=== PATIENT | female | born 1945 | race Caucasian/White ===

== ENCOUNTER 2017-07-02 13:22 | Emergency (ER) | payer MEDICARE, OTHER ==
--- NOTE | 2017-07-02 14:02 | CT ---
HEAD CT WITHOUT CONTRAST: Date: 07/02/17 COMPARISON: None. HISTORY: Fall, head trauma, altered mental status. TECHNIQUE: Serial axial CT imaging at 5 mm intervals from vertex through skull base without contrast. FINDINGS: The imaged paranasal sinuses/mastoid air cells are well aerated. There is no displaced calvarial frac ture. No intracranial hemorrhage, midline shift, or mass effect. There is moderate diffuse cerebral v olume loss with associated prominence of the CSF-containing spaces. There is periventricular hypodens ity suggesting a degree of small vessel disease, most prominent anteriorly adjacent to the frontal ho rns of the lateral ventricles. IMPRESSION: Cerebral volume loss and evidence of small vessel disease. No displaced calvarial fracture or intracr anial hemorrhage. POS: MONIQUE
--- NOTE | 2017-07-02 14:04 | CT ---
CT OF THE CERVICAL SPINE WITHOUT CONTRAST: Date: 07/02/17 COMPARISON: None. HISTORY: Altered mental status with neck pain. TECHNIQUE: Multiple contiguous axial images were obtained in a CT of the cervical spine without contrast. Sagitt al and coronal reformats were performed. FINDINGS: There are moderate degenerative changes in the cervical spine. The vertebral bodies demonstrate merlyn l height and alignment without fracture or subluxation. The intervertebral discs are narrowed and mod erate osteophytes are seen. No prevertebral soft tissue swelling is seen. The posterior facets are we ll aligned. Normal alignment of the skull base with the cervical spine is seen. IMPRESSION: Moderate degenerative changes of the cervical spine without acute osseous abnormality. POS: SUBHA
[2017-07-02 14:35] LABS: #Basophils 0.1 thou/uL (0.0-0.2); #Eosinphils 0.1 thou/uL (0.0-0.7); #Lymphocytes 1.6 thou/uL (1.20-3.40); #Monocytes 0.7 thou/uL (0.11-0.59); #Neutrophils 5.1 thou/uL (1.40-6.50); %Basophils 0.9 % (0.0-1.0); %Eosinophils 1.5 % (0.0-10.0); %Lymphocytes 21.5 % (21.0-51.0); %Monocytes 9.5 % (0.0-10.0); %Neutrophils 66.6 % (42.0-75.0); Hemoglobin 12.3 g/dL (12.0-16.0); Mean Corpuscular Hemoglobin 29.7 pg (27.0-31.0); Mean Corpuscular Volume 92.9 fl (81.0-99.0); Platelet Count 227 thou/uL (130-400); RBC Distribution Width 12.6 % (11.5-14.5); Red Blood Cell (RBC) Count 4.12 mill/uL (4.20-5.40); White Blood Cell (WBC) Count 7.6 thou/uL (4.8-10.8)
[2017-07-02 14:57] LABS: ALT (SGPT) 34 U/L (8-55); AST (SGOT) 22 U/L (5-34); Albumin 3.8 g/dL (3.4-4.8); Alkaline Phosphatase 85 U/L (40-150); Anion Gap 11 mmol/L (10-20); BUN (Urea Nitrogen) 13 mg/dL (9.8-20.1); Bilirubin, Total Less than 0.2 mg/dL (0.2-1.2); Calc. Creatinine Clearance 0 mL/min (70-130); Calcium 8.9 mg/dL (7.8-10.44); Carbon Dioxide 28 mmol/L (23-31); Chloride 104 mmol/L (98-107); Estimated GFR-MDRD 67; Globulin 2.8 g/dL (2.4-3.5); Glucose 74 mg/dL (83-110); Potassium 4.3 mmol/L (3.5-5.1); Protein, Total 6.6 g/dL (6.0-8.3); Sodium 139 mmol/L (136-145)
[2017-07-02 15:00] LABS: CKMB 1.1 ng/mL (0-6.6)
[2017-07-02 15:43] LABS: Bilirubin Negative (Negative); Blood, Urine Moderate (Negative); Clarity CLOUDY (Clear); Glucose, Urine (Dipstick) Negative (Negative); Leukocyte Large (Negative); Nitrite Positive (Negative); Protein, Urine (Dipstick) Negative (Neg-Trace); Specific Gravity, Urine 1.018 (1.002-1.036); Urobilinogen 0.2 mg/dL (0.2-1.0); pH, Urine 7.5 (5.0-9.0)
[2017-07-02 15:44] LABS: Bacteria/HPF 4+ HPF (None Seen); Hyaline Casts/LPF 4-6 HYALINE CAST LPF (0-3 Hyaline); Pathc Cast-AUWi Flag 0.54 (0-2.49); Squamous Epithelial 0-3 HPF (0-3)
[2017-07-02] MEDS ORDERED: Adacel (T-DAP) 0.5 ML VIAL ONE (16:27)
[2017-07-02] MEDS ORDERED: Nitrofurantoin Macrocrystal 50 MG CAP PO SCH (16:30)
--- NOTE | 2017-07-17 21:50 | EKG ---
Test Reason : AMS/FALL Blood Pressure : / mmHG Vent. Rate : 077 BPM Atrial Rate : 077 BPM P-R Int : 136 ms QRS Dur : 066 ms QT Int : 372 ms P-R-T Axes : 053 054 063 degrees QTc Int : 420 ms Normal sinus rhythm Abnormal ECG Confirmed by JENNIFER BEARDEN ([id number]), makeup editor JANICE GUILLAUME ([id number] on 07/17/2017 9:49:56 PM Referred By: Confirmed By:JENNIFER BEARDEN
== END 2017-07-02 17:29 | disposition home or self-care (01) ==
LOC: ERS 13:22
DX: S00.93XA Contusion of unspecified part of head, initial encounter (principal); N39.0 Urinary tract infection, site not specified; E78.5 Hyperlipidemia, unspecified; W01.190A Fall on same level from slipping, tripping and stumbling with subsequent striking against furniture, initial encounter; Y92.29 Other specified public building as the place of occurrence of the external cause
CPT/HCPCS: 36415; 70450; 72125; 80053; 81003; 81015; 82553; 83605; 84484; 85025; 87077; 87086; 87186; 90471; 90715; 93005; 94760; 96361; 96374; J0696

== ENCOUNTER 2019-06-04 13:51 | Emergency (ER) | payer MEDICARE, OTHER ==
[2019-06-04 14:36] LABS: #Eosinphils 0.2 thou/uL (0.0-0.7); #Lymphocytes 1.9 thou/uL (1.20-3.40); #Monocytes 0.6 thou/uL (0.11-0.59); #Neutrophils 4.2 thou/uL (1.40-6.50); %Basophils 0.4 % (0.0-1.0); %Eosinophils 3.1 % (0.0-10.0); %Lymphocytes 27.1 % (21.0-51.0); %Monocytes 8.3 % (0.0-10.0); %Neutrophils 61.2 % (42.0-75.0); Hemoglobin 13.7 g/dL (12.0-16.0); Mean Corpuscular HGB CONC 35.2 g/dL (32.0-36.0); Mean Corpuscular Hemoglobin 31.7 pg (27.0-31.0); Mean Corpuscular Volume 90.1 fL (78.0-98.0); Mean Platelet Volume 7.5 fL (7.4-10.4); Platelet Count 222 thou/uL (130-400); Red Blood Cell (RBC) Count 4.31 mill/uL (4.20-5.40); White Blood Cell (WBC) Count 6.9 thou/uL (4.8-10.8)
--- NOTE | 2019-06-04 14:50 | RAD ---
Exam: Chest 2 views: HISTORY: Swollen lower extremity COMPARISON: 02/11/2004 FINDINGS: There is some rotation to the right. Heart size is within normal limits. Biapical pleural thickening. IMPRESSION: Rotational changes. No acute intrathoracic disease. Atherosclerosis of the aorta.
[2019-06-04 14:51] LABS: ALT (SGPT) 33 U/L (8-55); AST (SGOT) 28 U/L (5-34); Albumin 4.2 g/dL (3.4-4.8); Alkaline Phosphatase 105 U/L (40-110); Anion Gap 16 mmol/L (10-20); BUN (Urea Nitrogen) 11 mg/dL (9.8-20.1); Bilirubin, Total 0.3 mg/dL (0.2-1.2); Calc. Creatinine Clearance 0 mL/min (70-130); Calcium 8.9 mg/dL (7.8-10.44); Carbon Dioxide 24 mmol/L (23-31); Chloride 104 mmol/L (98-107); Estimated GFR-MDRD 86; Glucose 89 mg/dL (83-110); Potassium 3.8 mmol/L (3.5-5.1); Protein, Total 7.2 g/dL (6.0-8.3); Sodium 140 mmol/L (136-145)
[2019-06-04 17:15] LABS: Bacteria/HPF 4+ HPF (None Seen); Bilirubin Negative (Negative); Blood, Urine Trace (Negative); Clarity Turbid (Clear); Glucose, Urine (Dipstick) Normal (Negative); Leukocyte 75 Leu/uL (Negative); Nitrite Negative (Negative); Protein, Urine (Dipstick) Negative (Neg-Trace); Squamous Epithelial 0-3 HPF (0-3); Urobilinogen Normal mg/dL (Less than 2); WBC/HPF 21-50 HPF (0-3)
--- NOTE | 2019-06-04 19:08 | CT ---
CT OF THE ABDOMEN AND PELVIS WITHOUT IV CONTRAST INDICATION: Right lower quadrant abdominal pain concern for appendicitis COMPARISON: None FINDINGS: This examination is limited for the evaluation of solid organs and vascular structures due to the lac k of intravenous contrast. ABDOMEN: Lung bases: Clear Liver: No focal lesion. Gallbladder: Normal appearing. Pancreas: Normal. Adrenal glands: There is an indeterminate 1.5 cm right adrenal nodule. There is a 2.3 cm left adrenal myelolipoma. Spleen: Normal. Kidneys and ureters: Normal. No hydronephrosis. Vasculature: There are moderate vascular calcifications seen involving the visualized vasculature. Lymph nodes:No lymphadenopathy. Free fluid in abdomen:No free fluid is evident. PELVIS: Small and large bowel: Colonic diverticulosis with a mild amount retained stool within the colon. Sma ll bowel is normal in caliber. Appendix:Normal Bladder: Small amount of gas is seen within the bladder. Rectal and perirectal soft tissues:Mild amount retained stool within the rectum Reproductive structures: Not visible Free fluid in pelvis: No free fluid is evident. Lymphadenopathy pelvis: No lymphadenopathy is evident. Osseous structures: There is diffuse osteopenia. No acute fracture or subluxation demonstrated. There is grade 1 anterolisthesis of L4 and L5 which is degenerative. There is scattered degenerative and osteoarthritic changes. Soft tissues:Normal. IMPRESSION: 1. Normal appendix. 2. Indeterminate right adrenal nodule. Follow-up nonemergent CT of the abdomen utilizing adrenal mass protocol is recommended.
== END 2019-06-04 20:28 | disposition home or self-care (01) ==
LOC: ERS 13:51
DX: N39.0 Urinary tract infection, site not specified (principal); E27.8 Other specified disorders of adrenal gland; E78.5 Hyperlipidemia, unspecified; F32.9 Major depressive disorder, single episode, unspecified; E78.00 Pure hypercholesterolemia, unspecified; Z79.82 Long term (current) use of aspirin; Z79.899 Other long term (current) drug therapy
CPT/HCPCS: 36415; 51701; 71046; 74176; 80053; 81003; 81015; 83605; 83690; 83880; 84484; 85025; 87077; 87086; 87186; 93005; A4353